=== PATIENT | female | born 1980 | race Caucasian/White ===

== ENCOUNTER 2017-04-25 06:54 | Inpatient (IN) | payer OTHER ==
[~2017-04-25] VITALS: Ht 172.7 cm; Wt 88.1 kg
[~2017-04-25 06:54] MED LIST: PREN1TAB60 PO
[2017-04-25] MEDS: D5%-LACTATED RINGERS 1,000 ML IV SCH ×3 (07:10→23:10)
[2017-04-25] MEDS ORDERED: OXYTOCIN 30U/ 0.9% NaCL 500ML 500 ML IV ONE (07:10)
[2017-04-25] MEDS ORDERED: OXYTOCIN 30U/ 0.9% NaCL 500ML 500 ML IV PRN ×2 (07:10→16:49)
[2017-04-25] MEDS: LACTATED RINGERS 1,000 ML IV SCH ×3 (07:23→22:17)
[2017-04-25] MEDS ORDERED: FENTANYL PF 100 MCG/2ML IV PRN (07:30)
[2017-04-25] MEDS ORDERED: ONDANSETRON 2MG/ML, 2ML IVPush PRN (07:30)
[2017-04-25] MEDS ORDERED: TERBUTALINE 1 MG/ML, 1ML IVPush PRN (07:30)
[2017-04-25] MEDS ORDERED: PENICILLIN GK 5,000,000 UNITS in DEXTROSE 5% 100 ML IVPB ONE (07:30)
[2017-04-25] MEDS ORDERED: SODIUM CITRATE/CITRIC ACID 30 ML UDC PO PRN (07:30)
[2017-04-25] MEDS ORDERED: METOCLOPRAMIDE 5 MG/ML, 2ML IVPush PRN (07:30)
[2017-04-25] MEDS ORDERED: FENTANYL PF 100 MCG/2ML IVPush PRN (07:30)
[2017-04-25] MEDS ORDERED: NEWBORN KIT ONE (07:37)
[2017-04-25] MEDS ORDERED: LIDOCAINE 1%, 20ML ONE (07:37)
[2017-04-25] MEDS ORDERED: OXYTOCIN 30U/ 0.9% NaCL 500ML 500 ML ONE (07:37)
[2017-04-25] MEDS ORDERED: MISOPROSTOL 200 MCG TABLET ONE (07:37)
[2017-04-25 07:57] LABS: HEMATOCRIT 36.6 % (34.6-47.8); HEMOGLOBIN 12.3 g/dL (11.7-16.4); WHITE BLOOD COUNT 10.1 x10^3/uL (3.4-10)
[2017-04-25] MEDS ORDERED: MISOPROSTOL 25 MCG TABLET ONE ×2 (08:09→12:22)
[2017-04-25] MEDS: MISOPROSTOL 25 MCG TABLET VG PRN ×2 (08:20→12:35)
[2017-04-25 08:24] VITALS: BP 117/78
[2017-04-25] MEDS: PENICILLIN GK 2,500,000 UNITS in DEXTROSE 5% 100 ML IVPB SCH ×4 (12:06→23:30)
[2017-04-25] MEDS ORDERED: FENTANYL PF 100 MCG/2ML ONE ×2 (22:39→22:42)
[2017-04-25] MEDS ORDERED: FENTANYL/BUPIV./NS/PF 0 ML EPIDCONT ONE (22:42)
[2017-04-25] MEDS ORDERED: BUPIVACAINE 0.25% ONE (22:42)
[2017-04-25] MEDS ORDERED: IBUPROFEN 600 MG TABLET ONE (23:47)
[2017-04-26] MEDS ORDERED: IBUPROFEN 200 MG TABLET PO PRN
[2017-04-26] MEDS ORDERED: OXYTOCIN 30U/ 0.9% NaCL 500ML 500 ML ONE (00:01)
[2017-04-26] MEDS ORDERED: OXYcodone/APAP 5/325MG TABLET PO PRN ×2 (00:30)
[2017-04-26] MEDS: OXYTOCIN 30U/ 0.9% NaCL 500ML 500 ML IV SCH ×3 (00:30→20:30)
[2017-04-26 01:20] VITALS: BP 91/65
[2017-04-26] MEDS: IBUPROFEN 600 MG TABLET PO PRN (06:41)
[2017-04-26 07:53] LABS: HEMATOCRIT 36.2 % (34.6-47.8); HEMOGLOBIN 12.2 g/dL (11.7-16.4); WHITE BLOOD COUNT 13.7 x10^3/uL (3.4-10)
[2017-04-26 08:40] VITALS: BP 111/74
[2017-04-26] MEDS: DOCUSATE 100 MG CAPSULE PO PRN (08:45)
[2017-04-26] MEDS: PRENATAL VIT/IRON/FA 1 EACH TABLET PO SCH (08:45)
[2017-04-26 11:54] VITALS: BP 113/71
[2017-04-26 15:45] VITALS: BP 121/81
[2017-04-26 20:00] VITALS: BP 122/81
[2017-04-27] MEDS: IBUPROFEN 600 MG TABLET PO PRN (01:52)
[2017-04-27] MEDS: OXYTOCIN 30U/ 0.9% NaCL 500ML 500 ML IV SCH (03:40)
[2017-04-27 07:35] VITALS: BP 110/70
[2017-04-27] MEDS: DOCUSATE 100 MG CAPSULE PO PRN (10:41)
[2017-04-27] MEDS: PRENATAL VIT/IRON/FA 1 EACH TABLET PO SCH (10:41)
[2017-04-27 19:30] VITALS: BP 121/81
== END 2017-04-27 20:25 | disposition home or self-care (01) | DRG 775 ==
LOC: LDIP 06:54 → 2NW 04-26 01:30
PROVIDERS: ADMIT Obstetrics & Gynecology; ATTEND Obstetrics & Gynecology
PROC: 10E0XZZ Delivery of Products of Conception, External Approach (ICD-10-PCS; principal; 2017-04-26)
DX: O99.824 Streptococcus B carrier state complicating childbirth (principal); O09.523 Supervision of elderly multigravida, third trimester; Z37.0 Single live birth; Z3A.39 39 weeks gestation of pregnancy
CPT/HCPCS: 36415; 85025; 86850; 86900; J2540; J3010; J2590; J7120